=== PATIENT | female | born 1945 | race Caucasian/White ===

== ENCOUNTER → 2016-05-27 | Outpatient (CLI) | payer MEDICARE, OTHER | END | disposition home or self-care (01) | LOC: GMAL 10:20 | PROVIDERS: ATTEND Family Medicine | DX: R53.82 Chronic fatigue, unspecified (principal); D51.3 Other dietary vitamin B12 deficiency anemia ==

== ENCOUNTER → 2016-12-02 | Outpatient (CLI) | payer MEDICARE, OTHER | END | disposition home or self-care (01) | LOC: GMAL 10:43 | PROVIDERS: ATTEND Family Medicine | DX: R53.83 Other fatigue (principal); E55.9 Vitamin D deficiency, unspecified ==

== ENCOUNTER → 2017-07-01 | Outpatient (CLI) | payer MEDICARE, OTHER | LOC: GMAL 10:52 | PROVIDERS: ATTEND Family Medicine | DX: N30.00 Acute cystitis without hematuria (principal) ==

== ENCOUNTER → 2017-11-24 | Outpatient (CLI) | payer MEDICARE, OTHER | LOC: GMAL 10:51 | PROVIDERS: ATTEND Family Medicine | DX: D51.3 Other dietary vitamin B12 deficiency anemia (principal); R53.82 Chronic fatigue, unspecified; E55.9 Vitamin D deficiency, unspecified ==

== ENCOUNTER 2018-01-09 05:45 | Day surgery (SDC) | payer MEDICARE, OTHER ==
[2018-01-09] MEDS ORDERED: MIDAZOLAM INJ 2 MG/2 ML VIAL IV ONE (05:46)
[2018-01-09] MEDS ORDERED: TROP 1%/CYCLOPEN 1%/PHENYL 2% DROPS OPHTH ONE (05:46)
[2018-01-09] MEDS ORDERED: PROPARACAINE 0.5% OPHTH SOL 15 ML BTTL RIGHT_EYE ONE (12:45)
[2018-01-09] MEDS ORDERED: TOBRAMYCIN SULF 0.3 % OPHT SOL 1 DROP RIGHT_EYE ONE ×2 (12:54→13:02)
[2018-01-09] MEDS ORDERED: LIDOCAINE 1% MPF 5 ML VIAL INJ ONE (12:54)
[2018-01-09] MEDS ORDERED: DEXAMETHASONE 0.1% OPHTH SOL 1 DROP RIGHT_EYE ONE ×2 (12:54→13:02)
[2018-01-09] MEDS ORDERED: BRIMONIDINE 0.2% OPHTH DROPS RIGHT_EYE ONE ×2 (12:55→13:02)
== END 2018-01-09 13:40 | disposition home or self-care (01) ==
LOC: AMB 05:45
PROVIDERS: ATTEND Ophthalmology
DX: H25.11 Age-related nuclear cataract, right eye (principal); I11.0 Hypertensive heart disease with heart failure; I50.9 Heart failure, unspecified; E66.9 Obesity, unspecified; Z87.891 Personal history of nicotine dependence
CPT/HCPCS: 00142; 66984; J2250

== ENCOUNTER 2018-01-23 05:44 | Day surgery (SDC) | payer MEDICARE, OTHER ==
[2018-01-23] MEDS ORDERED: MIDAZOLAM INJ 2 MG/2 ML VIAL ONE (06:44)
[2018-01-23] MEDS ORDERED: TROP 1%/CYCLOPEN 1%/PHENYL 2% DROPS ONE (08:23)
[2018-01-23] MEDS ORDERED: PROPARACAINE 0.5% OPHTH SOL 15 ML BTTL ONE (08:23)
[2018-01-23] MEDS ORDERED: LIDOCAINE 1% MPF 5 ML VIAL INJ ONE (09:44)
[2018-01-23] MEDS ORDERED: DEXAMETHASONE 0.1% OPHTH SOL 1 DROP LEFT_EYE ONE ×2 (09:46→09:57)
[2018-01-23] MEDS ORDERED: TOBRAMYCIN SULF 0.3 % OPHT SOL 1 DROP LEFT_EYE ONE ×2 (09:47→09:57)
[2018-01-23] MEDS ORDERED: BRIMONIDINE 0.2% OPHTH DROPS LEFT_EYE ONE ×2 (09:47→09:57)
== END 2018-01-23 10:36 | disposition home or self-care (01) ==
LOC: AMB 05:44
PROVIDERS: ATTEND Ophthalmology
DX: H25.12 Age-related nuclear cataract, left eye (principal); I11.0 Hypertensive heart disease with heart failure; I50.9 Heart failure, unspecified; F41.9 Anxiety disorder, unspecified
CPT/HCPCS: 00142; 66984; J2250

== ENCOUNTER 2018-02-07 02:56 | Emergency (ER) | payer MEDICARE, OTHER ==
--- NOTE | 2018-02-07 04:14 | ED.PDOC ---
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 BRB. THERE WAS ALSO BLOOD IN THE TOILET, BUT SHE IS NOT SURE WHERE THE BLOOD CAME FROM. WAS IN HER USUAL STATE OF HEALTH UNTIL THIS AM. Severity: moderate Improving Factors: nothing Worsening Factors: nothing Associated Symptoms: denies symptoms Allergies/Adverse Reactions: Allergies NO KNOWN ALLERGY Allergy (Verified 12/07/14 14:02) Home Medications: Ambulatory Orders Aspirin [Aspir-81] 81 mg PO DAILY #0 05/22/12 Atenolol [Tenormin] 50 mg PO DAILY #0 05/22/12 Nortriptyline HCl 25 mg PO HS #0 05/22/12 Cholecalciferol [D3 2000] 2,000 unit PO DAILY 10/24/15 Cyanocobalamin Inj [Vitamin B-12 Inj] 1,000 mcg IM ONCE 10/24/15 Lorazepam 1 mg PO DAILY 10/24/15 Losartan Potassium [Cozaar] 25 mg PO DAILY 10/24/15 Naproxen Sodium [Aleve] 220 mg PO BID 10/24/15 Ciprofloxacin [Cipro] 500 mg PO BID #20 ml 02/07/18 Review of Systems - Review of Systems Constitutional: Denies: chills, fever, weakness EENTM: States: no symptoms reported Respiratory: Denies: short of breath Cardiology: Denies: chest pain, palpitations, syncope Gastrointestinal/Abdominal: Denies: abdominal pain, nausea, vomiting Genitourinary: Denies: dysuria, frequency, hematuria Musculoskeletal: Denies: back pain, neck pain Skin: States: no symptoms reported Neurological: States: no symptoms reported Endocrine: States: no symptoms reported Hematologic/Lymphatic: Denies: easy bleeding, easy bruising Past Medical History (General) - Patient Medical History Hx Stroke: No Hx Cardiac Disorders: Yes Hx Congestive Heart Failure: No Hx Hypertension: Yes Hx Diabetes: No Hx MRSA: No - Vaccination History Hx Influenza Vaccination: Yes Hx Pneumococcal Vaccination: Yes - Social History Hx Tobacco Use: No - Triage Comment ED Triage Comment: Possible vaginal bleeding, states bleeding was bright red in nature, but stopped at present Family Medical History - Family History Father Living Status: Hx Cardiac Disease: Yes Hx Family;Other: Dementia Physical Exam - Physical Exam General Appearance: Alert, No apparent distress Eye Exam: bilateral normal Ears, Nose, Throat: hearing grossly normal, normal ENT inspection Neck: non-tender, full range of motion, supple, normal inspection Respiratory: lungs clear, normal breath sounds Cardiovascular/Chest: regular rate, rhythm, no murmur Gastrointestinal/Abdominal: non tender, soft, no organomegaly, other - NL EXT GENITALIA, URETHRA NL, NO BLOOD, CX NL, NO BLEEDING. Rectal Exam: normal exam, normal rectal tone, other - NO MASSES, NO GROSS BLOOD Back Exam: normal inspection, no CVA tenderness Extremity: normal range of motion, non-tender Neurologic: alert, normal mood/affect Skin Exam: normal color, warm/dry Lymphatic: no adenopathy Departure - Departure Clinical Impression: UTI (urinary tract infection) Qualifiers: Urinary tract infection type: acute cystitis Hematuria presence: with hematuria Qualified Code(s): N30.01 - Acute cystitis with hematuria Hematuria Qualifiers: Hematuria type: gross Qualified Code(s): R31.0 - Gross hematuria ICD-10 Supporting Text: DDX: VAGINAL BLEEDING VS HEMATACHEZIA Time of Disposition: 06:12 Disposition: Discharge to Home or Self Care Condition: Good Departure Forms: ED Discharge - Pt. Copy, Patient Portal Self Enrollment Instructions: Acute Cystitis (DC) Referrals: Domo Gibson III, MD [Primary Care Provider] - 1-2 Weeks Prescriptions: Ciprofloxacin [Cipro] 500 mg PO BID #20 ml Home Medications: Ambulatory Orders Aspirin [Aspir-81] 81 mg PO DAILY #0 05/22/12 Atenolol [Tenormin] 50 mg PO DAILY #0 05/22/12 Nortriptyline HCl 25 mg PO HS #0 05/22/12 Cholecalciferol [D3 2000] 2,000 unit PO DAILY 10/24/15 Cyanocobalamin Inj [Vitamin B-12 Inj] 1,000 mcg IM ONCE 10/24/15 Lorazepam 1 mg PO DAILY 10/24/15 Losartan Potassium [Cozaar] 25 mg PO DAILY 10/24/15 Naproxen Sodium [Aleve] 220 mg PO BID 10/24/15 Ciprofloxacin [Cipro] 500 mg PO BID #20 ml 02/07/18
[2018-02-07 06:44] VITALS: BP 114/69; TEMP 98.4; O2SAT 96
== END 2018-02-07 06:30 | disposition home or self-care (01) ==
LOC: ER 02:56
DX: N30.01 Acute cystitis with hematuria (principal); I51.9 Heart disease, unspecified; I10 Essential (primary) hypertension; Z79.82 Long term (current) use of aspirin; Z79.899 Other long term (current) drug therapy

== ENCOUNTER → 2018-05-11 | Outpatient (CLI) | payer MEDICARE, OTHER ==
--- NOTE | 2018-05-12 08:10 | US ---
EXAM: Pelvis Transvaginal TECHNIQUE: Transabdominal and transvaginal pelvic ultrasound. CLINICAL HISTORY: VAGINAL BLEEDING COMPARISON STUDY: None. FINDINGS: Sonographic examination shows a normal size uterus without any abnormality. The endometrium is less than 2 millimeters. A fibroid is present within the posterior aspect of the myometrium which measures 10 x 6 mm and does not compress the endometrial stripe. A 5 mm cervical nabothian cyst is a benign finding. Neither ovary can be identified. There is no adnexal mass or free fluid. IMPRESSION: 1. 10 x 6 mm uterine fibroid does not contact the endometrium. 2. Normal postmenopausal endometrial stripe. 3. No adnexal mass but the ovaries cannot be identified. Electronically signed by: Den Jaeger MD 05/12/2018 8:06 AM CDT
== END ==
LOC: US 08:29
PROVIDERS: ATTEND Family Medicine
DX: N92.5 Other specified irregular menstruation (principal); D25.9 Leiomyoma of uterus, unspecified

== ENCOUNTER 2018-05-24 05:36 | Day surgery (SDC) | payer MEDICARE, OTHER ==
--- NOTE | 2018-05-18 13:22 | HP ---
CHIEF COMPLAINT: Left hand second digit mass. HISTORY OF PRESENT ILLNESS: Ms. Bob is a 73-year-old female with a history of swelling and pain on the digit overlying the middle phalanx and slightly distal to that. She had no trauma related to the onset of this, denies any radiation of pain and denies any neurologic symptoms. She states she simply woke up one morning and the mass was there. There was a small puncture and she said some whitish fluid came out, but there was no other successful removal of fluid. Because of the ongoing mass, she has requested excision. After discussing the risks, benefits and alternatives to that, she has given informed consent. PAST SURGICAL HISTORY: 1. Bilateral knee replacement. 2. Rotator cuff repair. 3. Toe fusion. MEDICATIONS: 1. Vitamin D. 2. Lorazepam. 3. Nortriptyline. 4. Ropinirole. 5. Losartan. 6. Aspirin. 7. Aleve. ALLERGIES: NO KNOWN DRUG ALLERGIES. CODE STATUS: Full code. IMMUNIZATIONS: Up to date. FAMILY HISTORY: None pertinent to today's complaint. SOCIAL HISTORY: The patient does not drink, smoke or use any illicit drugs. REVIEW OF SYSTEMS: Negative except as indicated in the History of Present Illness. PHYSICAL EXAMINATION: VITAL SIGNS: Blood pressure 104/66. Pulse 76. Height 5'1". Weight 195 pounds. MENTAL STATUS: The patient is awake, alert, and is able to give a good history and participate in the physical. The patient is oriented to person, place and time. SKIN: Normal tone and turgor. MUSCULOSKELETAL: She has some tenderness over the mass and it is relatively firm. There is no erythema, no fluctuance and no crepitus. She has multiple deformities of the digits secondary to arthritic changes. She does have some limitation of flexion of that digit secondary to both the mass and from her arthritis. IMAGING: X-rays show about a 1.5 x 1 cm mass at its greatest dimension, however, the swelling with soft tissue incorporated is about 2.5 x 1.5 cm. It is somewhat calcified. 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 ASSESSMENT: 1. Mass on the second digit. PLAN: The plan at this point is for excision of the mass. We have discussed the risks, benefits, and alternatives to that and the patient has given informed consent. #[id number] [facility]
[2018-05-24] MEDS ORDERED: SODIUM CHL 0.9% 100ML MINI-BAG 100 ML IVPB ONE (06:07)
[2018-05-24] MEDS ORDERED: LACTATED RINGERS 1,000 ML ONE (06:07)
[2018-05-24] MEDS ORDERED: ceFAZolin SODIUM 1 GM VIAL ONE ×2 (06:08→09:27)
[2018-05-24] MEDS ORDERED: fentaNYL CITRATE INJ 50 MCG/ML AMP ONE (08:51)
[2018-05-24] MEDS ORDERED: VANCOMYCIN HCL INJ 1,000 MG VIAL IVPB ONE (09:27)
[2018-05-24] MEDS ORDERED: LIDOCAINE 1% 10 ML VIAL INJ ONE ×2 (09:27→10:00)
[2018-05-24] MEDS ORDERED: BUPIVACAINE 0.25% INJ 30 ML VIAL INJ ONE (09:27)
[2018-05-24] MEDS ORDERED: PROPOFOL 200 MG/20 ML VIAL IV ONE (10:00)
[2018-05-24 14:36] VITALS: BP 111/76; TEMP 98.1; O2SAT 95
--- NOTE | 2018-05-25 08:29 | OP ---
DATE OF PROCEDURE: 05/24/18 PREOPERATIVE DIAGNOSIS: 1. Benign mass, left index finger. POSTOPERATIVE DIAGNOSIS: 1. Benign mass, left index finger. PROCEDURE: 1. Excision of mass. SURGEON: Ambrose Antunez MD. INDUSTRIAL TRAINER: Emanuel España CST, SA-C. ANESTHESIA: Local with sedation. COMPLICATIONS: None. FINDINGS: Approximately 2 x 1 cm mass overlying the middle phalanx of the index finger of the left hand. INDICATION: Ms. Bob has a history of a mass that she said happened almost on an overnight basis. She had some minor discomfort there, but has had no trauma or foreign body penetration. Because of the presence of the mass, she requested operative intervention. After the discussing the risks, benefits and alternatives to that, she gave informed consent for that. PROCEDURE: The patient was brought to the Operating Room and placed in the supine position. Sedation was administered and under sterile conditions, a ring block was performed. Following that, the arm was sterilely prepped and draped. An incision was made directly over the mass and blunt dissection was used to core out the mass. There was some chalky appearing material within the mass and it was relatively free of any adhesions to the overlying skin. The mass was taken at its base and the wound very thoroughly irrigated. Following irrigation of the wound, the skin was closed with Nylon suture. Sterile dressings were placed. The patient was then taken back to the Day Surgery Unit. POSTOPERATIVE PLAN: She will followup with us in 2 days. #[id number] [facility]
== END 2018-05-24 11:40 | disposition home or self-care (01) ==
LOC: AMB 05:36
PROVIDERS: ATTEND Orthopaedic Surgery
DX: D21.12 Benign neoplasm of connective and other soft tissue of left upper limb, including shoulder (principal); I10 Essential (primary) hypertension; Z96.653 Presence of artificial knee joint, bilateral; Z79.1 Long term (current) use of non-steroidal anti-inflammatories (NSAID); Z79.82 Long term (current) use of aspirin; Z79.899 Other long term (current) drug therapy
CPT/HCPCS: 00400; 26111; 87070; 88305; J0690; J3010; J3370; J3490; J7050; J7120

== ENCOUNTER → 2019-01-03 | Outpatient (CLI) | payer MEDICARE, OTHER | LOC: LAB.O 15:27 | PROVIDERS: ATTEND Family Medicine | DX: Z20.828 Contact with and (suspected) exposure to other viral communicable diseases (principal) ==

== ENCOUNTER → 2019-11-27 | Outpatient (CLI) | payer MEDICARE, OTHER ==
--- NOTE | 2019-11-28 08:12 | MRI ---
Study: MRI of the brain. Indication: WEAKNESS Technique: Multiplanar, multi sequence MRI of the brain obtained without intravenous contrast. Comparison: None. Findings: No MRI evidence of acute ischemia, acute hemorrhage, mass, mass effect, midline shift, or extra-axial fluid collection. Ventricles are normal in configuration without hydrocephalus. Patchy elevated T2/FLAIR signal abnormality is seen within the periventricular and subcortical white matter. Although nonspecific, this finding is most consistent with chronic microvascular ischemic change. Global parenchymal volume loss noted as well. Midline structures are intact. Paranasal sinuses are adequately aerated. Mastoid air cells are adequately aerated. Osseous structures and soft tissues demonstrate normal signal characteristics. Impression: No MRI evidence of acute intracranial abnormality. Senescent changes. Electronically signed by: Surendra Dickson MD 11/28/2019 8:10 AM CDT
== END ==
LOC: MRI 13:00
PROVIDERS: ATTEND Family Medicine
DX: R53.1 Weakness (principal)

== ENCOUNTER → 2020-01-08 | Outpatient (CLI) | payer MEDICARE, OTHER | LOC: GMAL 10:51 | PROVIDERS: ATTEND Family Medicine | DX: D51.3 Other dietary vitamin B12 deficiency anemia (principal); E55.9 Vitamin D deficiency, unspecified; I10 Essential (primary) hypertension; E78.2 Mixed hyperlipidemia; Z79.899 Other long term (current) drug therapy ==

== ENCOUNTER 2020-02-11 16:33 | Emergency (ER) | payer MEDICARE, OTHER ==
[2020-02-11] MEDS ORDERED: SODIUM CHLORIDE 0.9% (FLUSH) 10 ML SYG IV PRN (16:38)
--- NOTE | 2020-02-11 16:40 | ED.PDOC ---
History of Present Illness - General Time Seen by Provider: 02/11/20 16:38 Source: patient - History of Present Illness Initial Comments: At bedside 16:45. 74 yo female with PMH of HTN who presents with cc of dizziness and ground-level fall 2 days ago at home. Patient reports she is chronic issues with dizziness and falling for the past 2 to 3 years but seems to be worsening in the past couple of months. She reports she has fallen 3 times in the past 5 months. Most recent fall was 2 days ago at home. Reports that she was going up some steps when she missed a step and tripped and fell on her left side. She reports bruising to the left breast. Reports constant sharp pains to the left anterior chest wall and breast, initially was severe in nature but has improved and now reports is mild to moderate in nature, no radiation, worse with palpation, well controlled with [id number] analgesics. Denies any dyspnea. Today she reports she had some trouble remembering her phone number which made her concerned and wanted to be checked out. She reports she is very anxious due to a lot of stressors currently in her life. Her PCP is Dr. Gibson who is investigating outpatient her memory issues which are also chronic. She denies any acute focal neurological deficits. No history of stroke or heart attack reported. Allergies/Adverse Reactions: Allergies NO KNOWN ALLERGY Allergy (Verified 02/11/20 16:46) Home Medications: Ambulatory Orders Aspirin [Adult Aspirin Regimen] 81 mg PO DAILY 05/18/18 Atenolol [Tenormin] 50 mg PO DAILY 05/18/18 Cholecalciferol [Vitamin D3] 2,000 unit PO DAILY 05/18/18 Cyanocobalamin [B12] 1,000 mcg PO WKLY 05/18/18 LORazepam [Ativan] 1 mg PO BID 05/18/18 Losartan Potassium 25 mg PO DAILY 05/18/18 Naproxen Sodium [Aleve] 440 mg PO PRN PRN 05/18/18 Nortriptyline HCl 25 mg PO BEDTIME 05/18/18 Cephalexin Monohydrate [Keflex] 500 mg PO BID 5 Days #10 cap 02/11/20 Review of Systems - Review of Systems Review of Systems: 02/11/20 18:58 as per HPI All other Systems: Reviewed and Negative Past Medical History (General) - Patient Medical History Hx Stroke: No Hx Cardiac Disorders: Yes Hx Congestive Heart Failure: Yes Hx Hypertension: Yes Hx Diabetes: No Hx MRSA: No - Vaccination History Hx Influenza Vaccination: Yes Hx Pneumococcal Vaccination: Yes - Social History Hx Tobacco Use: No Family Medical History - Family History Father Living Status: Hx Cardiac Disease: Yes Hx Family;Other: Dementia Physical Exam - Physical Exam General Appearance: Alert, Comfortable, No apparent distress Eye Exam: bilateral normal Ears, Nose, Throat: normal ENT inspection, normal pharynx Neck: non-tender, full range of motion, supple, normal inspection Respiratory: lungs clear, normal breath sounds, no respiratory distress, no accessory muscle use Cardiovascular/Chest: normal peripheral pulses, regular rate, rhythm, no edema, no gallop, no JVD, no murmur, other - Left breast with approx 4x4 cm area of bruising and ttp w/o deformity Peripheral Pulses: radial,right: 2+, radial,left: 2+ Gastrointestinal/Abdominal: non tender, soft, no organomegaly Back Exam: normal inspection, no CVA tenderness, no vertebral tenderness Extremity: normal range of motion, non-tender, normal inspection, no pedal edema, no calf tenderness, normal capillary refill Neurologic: 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 It is also possible patient is developing dementia or Parkinson disease which may be contributing to falls. This is being evaluated as an outpatient. Consider also arrhythmias, iatrogenic, bradycardia, dehydration, UTI, other -Obtain x-ray imaging of the chest, cardiac work-up, 02/11/20 19:01 -Patient has remained stable. Her resting heart rate has been noted to be as low as 45 but averages 50-55. Blood pressure and other vitals remain stable. Lab work is largely unremarkable as slightly elevated bilirubin level but as patient has no abdominal pain or tenderness on exam no further work-up in the ED is indicated. We will have patient follow-up outpatient for this issue. -X-ray of the chest reveals no acute processes or fractures of the ribs per my read. -Discussed findings as well as diagnosis chest wall contusion. Patient will need to continue work-up as an outpatient for dizziness and memory issues. Given her low resting heart rate, we will decrease her atenolol from 50 to 25 mg once daily. Advised that she will need to follow-up closely with Dr. Gibson for repeat evaluation and further guidance. -Discharged home in good condition, return warnings discussed at length. 02/11/20 19:29 -UA is consistent with UTI -may also be contributing to acute symptoms. We will treat with Keflex 500 mg p.o. twice daily for 5 days, first dose given here. Trev Gray MD Billing #[id number] 02/11/20 16:38 Sodium Chloride 0.9% (Flush) [Saline Flush Syringe] 10 ml IV PRN PRN 02/11/20 16:45 EKG STAT 02/11/20 19:00 URINALYSIS Stat 02/12/20 09:00 Pulse Ox Daily Laboratory Results - last 24 hr 02/11/20 02/11/20 02/11/20 16:50 16:50 16:50 WBC 6.3 RBC 4.79 Hgb 15.3 Hct 44.7 MCV 93.4 MCH 31.9 H MCHC 34.2 RDW 13.0 Plt Count 146 MPV 9.4 Absolute Neuts (auto) 4.90 Absolute Lymphs (auto) 0.80 L Absolute Monos (auto) 0.50 Absolute Eos (auto) 0.10 Absolute Basos (auto) 0.00 Neutrophils % 76.8 Lymphocytes % 12.8 L Monocytes % 8.5 Eosinophils % 1.2 Basophils % 0.7 Sodium 141 Potassium 3.8 Chloride 103 Carbon Dioxide 26 Anion Gap 15.8 BUN 10 Creatinine 0.97 BUN/Creatinine Ratio 10.3 Random Glucose 138 H Serum Osmolality 282.5 Calcium 9.0 Total Bilirubin 1.3 H AST 23 ALT 18 Alkaline Phosphatase 68 Troponin I < 0.02 B-Natriuretic Peptide 266.0 H* Serum Total Protein 7.2 Albumin 4.2 Globulin 3.0 Albumin/Globulin Ratio 1.4 TSH 02/11/20 16:50 WBC RBC Hgb Hct MCV MCH MCHC RDW Plt Count MPV Absolute Neuts (auto) Absolute Lymphs (auto) Absolute Monos (auto) Absolute Eos (auto) Absolute Basos (auto) Neutrophils % Lymphocytes % Monocytes % Eosinophils % Basophils % Sodium Potassium Chloride Carbon Dioxide Anion Gap BUN Creatinine BUN/Creatinine Ratio Random Glucose Serum Osmolality Calcium Total Bilirubin AST ALT Alkaline Phosphatase Troponin I B-Natriuretic Peptide Serum Total Protein Albumin Globulin Albumin/Globulin Ratio TSH 2.67 - EKG/XRAY/CT EKG: Sinus - Normal sinus rhythm, heart rate 55, no ST elevations or Q waves noted, nonspecific minimal ST segment depressions noted in the lateral leads, axis normal, intervals normal, no prior EKG for comparison. XRAY: chest - No acute processes per my read Departure - Departure Clinical Impression: Anxiety Fall Qualifiers: Encounter type: initial encounter Qualified Code(s): W19.XXXA - Unspecified fall, initial encounter Contusion of breast, left Qualifiers: Encounter type: initial encounter Qualified Code(s): S20.02XA - Contusion of left breast, initial encounter UTI (urinary tract infection) Qualifiers: Urinary tract infection type: acute cystitis Hematuria presence: without hematuria Qualified Code(s): N30.00 - Acute cystitis without hematuria Time of Disposition: 19:04 Disposition: Discharge to Home or Self Care Condition: Good Departure Forms: ED Discharge - Pt. Copy, Patient Portal Self Enrollment Instructions: Urinary Tract Infection, Adult (DC), Dizziness, Nonvertigo, (DC), Bruised Rib (DC) Diet: resume usual diet Activity: increase activity as tolerated Referrals: Domo Gibson III, MD [Primary Care Provider] - 1-2 Weeks Prescriptions: Cephalexin Monohydrate [Keflex] 500 mg PO BID 5 Days #10 cap Home Medications: Ambulatory Orders Aspirin [Adult Aspirin Regimen] 81 mg PO DAILY 05/18/18 Atenolol [Tenormin] 50 mg PO DAILY 05/18/18 Cholecalciferol [Vitamin D3] 2,000 unit PO DAILY 05/18/18 Cyanocobalamin [B12] 1,000 mcg PO WKLY 05/18/18 LORazepam [Ativan] 1 mg PO BID 05/18/18 Losartan Potassium 25 mg PO DAILY 05/18/18 Naproxen Sodium [Aleve] 440 mg PO PRN PRN 05/18/18 Nortriptyline HCl 25 mg PO BEDTIME 05/18/18 Cephalexin Monohydrate [Keflex] 500 mg PO BID 5 Days #10 cap 02/11/20 Additional Instructions: As advised, decrease your atenolol from 50 mg once daily to 25 mg once daily until further advice from your primary care physician. Remain well-hydrated and gradually advance your diet and activity level as tolerated. Return the ED if you develop concerning symptoms such as chest pain, shortness of breath, weakness or numbness on one side of the body, facial droop, slurred speech, etc. Otherwise follow-up closely with your primary care physician in the next 1 to 2 weeks for repeat evaluation or sooner as needed.
--- NOTE | 2020-02-11 17:15 | RAD ---
EXAM DESCRIPTION: Chest,1 View CLINICAL HISTORY: Dizzy, recurrent falls COMPARISON: None Available. FINDINGS: Single frontal view of the chest. Patient rotated to the right. Cardiac silhouette shows cardiomegaly. Pulmonary vascularity is upper limits of normal. Lungs show no confluent infiltrates. No pleural effusion. No pneumothorax. Redemonstrated large hiatal hernia. Degenerative changes of the shoulders. IMPRESSION: 1. Cardiomegaly without congestive heart failure. 2. Lungs show no confluent infiltrates. 3. Large hiatal hernia. Electronically signed by: Domo Rosales MD 02/11/2020 5:13 PM [facility]
[2020-02-11] MEDS ORDERED: CEPHALEXIN MONOHYDRATE 250 MG CAP PO ONE (19:25)
[2020-02-11 20:20] VITALS: BP 112/67; TEMP 97.1; O2SAT 95
== END 2020-02-11 19:40 | disposition home or self-care (01) ==
LOC: ER 16:33
DX: S20.02XA Contusion of left breast, initial encounter (principal); F41.9 Anxiety disorder, unspecified; N30.00 Acute cystitis without hematuria; R42 Dizziness and giddiness; R29.6 Repeated falls; I50.9 Heart failure, unspecified; I11.0 Hypertensive heart disease with heart failure; Z79.899 Other long term (current) drug therapy; Z79.82 Long term (current) use of aspirin; W10.9XXA Fall (on) (from) unspecified stairs and steps, initial encounter; Y92.9 Unspecified place or not applicable

== ENCOUNTER → 2020-03-12 | Outpatient (CLI) | payer MEDICARE, OTHER | LOC: GMAL 14:19 | PROVIDERS: ATTEND Family Medicine | DX: N30.00 Acute cystitis without hematuria (principal) ==